=== PATIENT | male | born 1950 | race Caucasian/White ===

== ENCOUNTER 2017-01-15 07:00 | Inpatient (IN) | payer MEDICARE ==
[2017-01-14 09:43] LABS: BLOOD UREA NITROGEN 23 mg/dL (7-18)
[2017-01-14 09:46] LABS: ASPARTATE AMINO TRANSFERASE 10 U/L (15-37)
[~2017-01-15] VITALS: Ht 167.6 cm; Wt 80.2 kg
[~2017-01-15 07:00] MED LIST: AMLO5TAB2 PO; LISI40TA PO; METF10002 PO; NAPR500T PO; TAMS-11 PO
[2017-01-15] MEDS ORDERED: TRANEXAMIC ACID 100 MG/ML, 10ML ONE (08:38)
[2017-01-15] MEDS ORDERED: ROPIvacaine/PF 0.5%, 30 ML ONE (08:38)
[2017-01-15] MEDS ORDERED: VANCOMYCIN PMX 1GM/200ML 200 ML IV STA (12:15)
[2017-01-15 12:29] VITALS: BP 149/80
[2017-01-15] MEDS ORDERED: LACTATED RINGERS 1,000 ML IV SCH (12:29)
[2017-01-15] MEDS ORDERED: LIDOCAINE 1%, 2ML SQ PRN (12:30)
[2017-01-15] MEDS ORDERED: MIDAZOLAM 1 MG/ML, 2ML ONE (13:19)
[2017-01-15] MEDS ORDERED: FENTANYL PF 250 MCG/5ML ONE (13:19)
[2017-01-15] MEDS ORDERED: KETOROLAC 30 MG/1 ML IM PRN (14:00)
[2017-01-15] MEDS ORDERED: ZOLPIDEM 5MG TABLET PO PRN (14:00)
[2017-01-15] MEDS ORDERED: ACETAMINOPHEN 325 MG TABLET PO PRN (14:00)
[2017-01-15] MEDS ORDERED: HYDROmorphone 1 MG/ML, 1ML IV PRN (14:00)
[2017-01-15] MEDS ORDERED: BISACODYL 10 MG SUPP PR PRN (14:00)
[2017-01-15] MEDS ORDERED: morphine SULFATE 10 MG/ML, 1ML IV PRN (14:00)
[2017-01-15] MEDS ORDERED: OXYcodone 5 MG/5 ML ORAL.SOL UDC PO PRN (14:00)
[2017-01-15] MEDS ORDERED: ONDANSETRON 2MG/ML, 2ML IVPush PRN (14:00)
[2017-01-15] MEDS ORDERED: MAGNESIUM HYDROXIDE 8%, 30ML UDC PO PRN (14:00)
[2017-01-15] MEDS ORDERED: LABETALOL 5MG/ML, 20ML IV PRN (14:00)
[2017-01-15] MEDS ORDERED: SENNA/DOCUSATE TABLET PO PRN (14:00)
[2017-01-15] MEDS ORDERED: ALUMINUM/MAG/SIMETHICONE 30 ML UDC PO PRN (14:00)
[2017-01-15] MEDS ORDERED: MEPERIDINE/PF 25MG/0.5ML IVPush PRN (14:00)
[2017-01-15] MEDS ORDERED: ACETAMINOPHEN 650 MG/20.3 ML UDC PO PRN (14:00)
[2017-01-15] MEDS ORDERED: FENTANYL PF 100 MCG/2ML IV PRN (14:00)
[2017-01-15] MEDS ORDERED: ONDANSETRON 4 MG TABLET PO PRN (14:00)
[2017-01-15] MEDS: HYDROcodone/APAP 10/325 MG TABLET PO SCH ×3 (14:00→22:29)
[2017-01-15] MEDS ORDERED: PROPOFOL 10 MG/ML, 20ML ONE (14:04)
[2017-01-15] MEDS ORDERED: CEFAZOLIN 1,000 MG ONE (14:04)
[2017-01-15] MEDS ORDERED: KETOROLAC 30 MG/1 ML ONE (15:58)
[2017-01-15] MEDS ORDERED: OXYcodone 5 MG/5 ML ORAL.SOL UDC ONE (15:58)
[2017-01-15] MEDS: INSULIN REGULAR 100 UNITS/ML, 3ML VIAL SQ-INSULIN SCH ×2 (16:00→21:00)
[2017-01-15] MEDS ORDERED: FENTANYL PF 100 MCG/2ML ONE (16:09)
[2017-01-15] MEDS ORDERED: [UNRECOGNIZED DRUG - REMARK] MC SCH (17:30)
[2017-01-15] MEDS: SODIUM CHLORIDE 0.9% 1,000 ML IV SCH (18:30)
[2017-01-15 19:31] VITALS: BP 146/88
[2017-01-15 20:45] VITALS: BP 136/80
[2017-01-15] MEDS ORDERED: metFORMIN 500 MG TABLET PO SCH (21:00)
[2017-01-15] MEDS: DOCUSATE 100 MG CAPSULE PO SCH (21:05)
[2017-01-15] MEDS: CEFAZOLIN PMX 1GM/50ML 50 ML IVPB SCH (22:29)
[2017-01-16 00:42] VITALS: BP 126/75
[2017-01-16] MEDS: HYDROcodone/APAP 10/325 MG TABLET PO SCH ×3 (02:08→09:51)
[2017-01-16] MEDS: SODIUM CHLORIDE 0.9% 1,000 ML IV SCH (04:16)
[2017-01-16 04:20] VITALS: BP 120/73
[2017-01-16] MEDS: CEFAZOLIN PMX 1GM/50ML 50 ML IVPB SCH (06:20)
[2017-01-16] MEDS: INSULIN REGULAR 100 UNITS/ML, 3ML VIAL SQ-INSULIN SCH (06:35)
[2017-01-16 07:45] VITALS: BP 121/70
[2017-01-16] MEDS ORDERED: metFORMIN XR 500 MG TAB.ER.24H PO SCH ×2 (08:00)
[2017-01-16] MEDS: DOCUSATE 100 MG CAPSULE PO SCH (08:29)
[2017-01-16] MEDS ORDERED: AMLODIPINE 5 MG TABLET PO SCH (09:00)
[2017-01-16] MEDS ORDERED: LISINOPRIL 20 MG TABLET PO SCH (09:00)
[2017-01-16] MEDS ORDERED: TAMSULOSIN 0.4 MG CAP.ER.24H PO SCH (09:00)
[2017-01-16 09:58] VITALS: BP 116/69
[2017-01-16] MEDS ORDERED: KETOROLAC 30 MG/1 ML IV SCH (14:00)
[2017-01-16] MEDS ORDERED: ASPIRIN 325 MG TABLET EC PO SCH (18:00)
== END 2017-01-16 11:00 | disposition home or self-care (01) | DRG 470 ==
LOC: ORIP 11:46 → 4NOR 16:59 → DCLOUNGE 01-16 10:35
PROVIDERS: ADMIT Orthopaedic Surgery; ATTEND Orthopaedic Surgery
PROC: 0SRD0J9 Replacement of Left Knee Joint with Synthetic Substitute, Cemented, Open Approach (ICD-10-PCS; principal; 2017-01-15 15:15)
DX: M17.12 Unilateral primary osteoarthritis, left knee (principal); I10 Essential (primary) hypertension; N40.0 Benign prostatic hyperplasia without lower urinary tract symptoms; Z79.899 Other long term (current) drug therapy
CPT/HCPCS: 36415; 80053; 82962; 87081; 93005; C1713; J0690; J2250; J2704; J2795; J3010; J3370; C1776; J7030; J7120

== ENCOUNTER → 2020-05-04 | Outpatient (CLI) | payer MEDICARE ==
[~2020-05-04] MED LIST changes: +AMLO-150 PO; -AMLO5TAB2 PO; +METF500T17 PO; +NAPR-856 PO; -NAPR500T PO
[2020-05-04 12:05] LABS: BASOPHILS # (AUTO) 0.06 x10^3/uL (0-0.1); BASOPHILS % (AUTO) 1 % (0-1); EOSINOPHILS # (AUTO) 0.25 x10^3/uL (0-0.4); EOSINOPHILS % (AUTO) 4 % (1-7); LYMPHOCYTES # (AUTO) 1.58 x10^3/uL (1-3.4); LYMPHOCYTES % (AUTO) 23 % (22-44); MD NO; MEAN CORPUSCULAR HEMOGLOBIN 31.3 pg (27.5-34.5); MEAN CORPUSCULAR HGB CONC 32.6 g/dL (33.2-36.2); MEAN CORPUSCULAR VOLUME 95.9 fL (81-97); MEAN PLATELET VOLUME 7.7 fL (7.4-10.4); MONOCYTES # (AUTO) 0.61 x10^3/uL (0.2-0.8); MONOCYTES % (AUTO) 9 % (2-9); NEUTROPHILS # (AUTO) 4.33 x10^3/uL (1.8-6.8); NEUTROPHILS % (AUTO) 63 % (42-75); PLATELET COUNT 266 x10^3/uL (130-400); RED BLOOD COUNT 4.61 x10^6/uL (4.38-5.82); RED CELL DISTRIBUTION WIDTH 13.6 % (9.4-14.8)
[2020-05-04 12:07] LABS: MICROSCOPIC NOT IND
[2020-05-04 12:14] LABS: INTERNATIONAL NORMALIZED RATIO 1.06 (0.93-1.1); PROTHROMBIN TIME 10.9 Seconds (9.6-11.5)
[2020-05-04 12:15] LABS: ANION GAP 5 mmol/L (5-15); CALCIUM 9.1 mg/dL (8.5-10.1); CHLORIDE 107 mmol/L (98-107)
[2020-05-04 12:19] LABS: ALANINE AMINOTRANSFERASE 22 U/L (12-78); ALKALINE PHOSPHATASE 78 U/L (45-117); BILIRUBIN,TOTAL 0.8 mg/dL (0.2-1.0); CREATININE 0.89 mg/dL (0.7-1.3); TOTAL PROTEIN 7.1 g/dL (6.4-8.2)
== END | disposition home or self-care (01) ==
LOC: STAR 10:01
PROVIDERS: ATTEND Orthopaedic Surgery Orthopaedic Surgery of the Spine
DX: Z01.812 Encounter for preprocedural laboratory examination (principal); Z20.828 Contact with and (suspected) exposure to other viral communicable diseases; M50.20 Other cervical disc displacement, unspecified cervical region; R00.1 Bradycardia, unspecified
CPT/HCPCS: 36415; 71046; 80053; 81003; 85025; 85610; 85730; 87635; 93005